=== PATIENT | female | born 1990 | race African-American/Black ===

== ENCOUNTER 2018-07-26 18:14 | Emergency (ER) | payer SELFPAY ==
[2018-07-26 18:24] VITALS: BP 122/70
[2018-07-26] MEDS ORDERED: PREDNISONE 20 MG TABLET PO ONE (18:49)
--- NOTE | 2018-07-26 18:55 | ER Document Report ---
HPI - HPI Patient complains to provider of: R hand swelling Time Seen by Provider: 07/26/18 18:25 Pain Level: 4 Context: Healthy 28-year-old female presents emergency department chief complaint of right hand swelling since this morning. She believes that she got a bite yesterday because she has some mosquito bites while being outside. She standing moving up and went to bed and when she woke up this morning there was some swelling. She went to work and the swelling got worse so her work sent her to the emergency department for assessment. She denies any redness, fevers, complains of pain at the site and tightness, denies warmth, has good range of motion. No other complaints. - REPRODUCTIVE Reproductive: DENIES: : Past Medical History - Social History Smoking Status: Never Smoker Family History: None Vertical Provider Document - CONSTITUTIONAL Notes: PHYSICAL EXAMINATION: Reviewed vital signs and charting by RN GENERAL: Alert, interacts well. No acute distress. HEAD: Normocephalic, atraumatic. EYES: Pupils equal, round. Extraocular movements intact. EXTREMITIES: Moves all 4 extremities spontaneously. Edema on the dorsal aspect of the first and second MCPs of the right hand that spreads proximally senior care up the hand approximately 3 inches x 3 inches, no erythema or warmth, there is a very small potential lesion that could be a bite. PSYCH: Normal affect, normal mood. SKIN: Warm, dry, normal turgor. - INFECTION CONTROL TRAVEL OUTSIDE OF THE [place] IN LAST 30 DAYS: No Course - Re-evaluation Re-evalutation: 07/26/18 18:52 Well-appearing. Patient tried to ice the extremity large and still has significant swelling and pain. She has not tried taking Benadryl as she went to work. I told her plan is to give her 1 dose of steroids here and recommendation is to go home and take Benadryl 50 mg p.o. right at bedtime and see how it is in the morning. If this will is gone down I told her to hold off on filling the steroid as we may be able to manage more conservatively with Benadryl. If she still has swelling I instructed her to get the steroid filled and continue the remaining 5-day course. There is no redness or concern for cellulitis, no evidence of necrosis, and she has a normal distal neurovascular exam with brisk cap refill. At this time she is stable for discharge. - Vital Signs Vital signs: Temp Pulse Resp BP Pulse Ox 98.9 F 75 16 122/70 97 07/26/18 18:22 07/26/18 18:22 07/26/18 18:22 07/26/18 18:22 07/26/18 18:22 Discharge - Discharge Clinical Impression: Swelling of right hand Condition: Good Disposition: HOME, SELF-CARE Additional Instructions: You were seen in the emergency department this afternoon for. Is unclear what caused it but most likely some type of a bug or potentially a spider. There is no evidence that it is from a brown recluse spider but you definitely need to look out for a small brown patch that turns black and starts to become necrotic. If that is the case please immediately return to the emergency department. Other things to look out for is to make sure that you do not develop a cellulitis where he will get redness that spreads, worsening swelling, reduced range of motion of the hand, fevers, or red streaks up your arm. If that is the case please return to the emergency department as you will need antibiotics for that. I recommend that you take Benadryl 50 mg right at bedtime to see if that helps with the inflammation overnight. If it does in the morning and the swelling is subsided we can manage more conservatively and he can continue to ice and take Benadryl 25 mg 3-4 times a day. It can make you drowsy. If you are still having swelling and pain in the morning go ahead and get the prescription for prednisone filled and take the 5-day course. If you have any of the above concerning signs or symptoms please return for reevaluation. Prescriptions: Prednisone [Deltasone 20 mg Tablet] 40 mg PO DAILY 4 Days #8 tablet Forms: Return to Work
== END 2018-07-26 19:21 | disposition home or self-care (01) ==
LOC: ER 18:14
DX: M79.89 Other specified soft tissue disorders (principal)
CPT/HCPCS: 99283; J7512

== ENCOUNTER 2019-02-11 11:51 | Emergency (ER) | payer SELFPAY ==
[2019-02-11] MEDS ORDERED: ONDANSETRON 4 MG TAB.RAPDIS PO ONE (12:32)
[2019-02-11] MEDS ORDERED: IBUPROFEN 800 MG TABLET PO ONE (12:32)
--- NOTE | 2019-02-11 12:34 | ER Document Report ---
HPI - HPI Patient complains to provider of: Flu symptoms Time Seen by Provider: 02/11/19 12:27 Onset: Yesterday Onset/Duration: Gradual Quality of pain: Achy Context: Patient presents with cough fever body aches and chills that started yesterday with nausea. Patient also reports some diarrhea. Patient states that her skin is painful to be touched. Patient is requesting influenza testing at this time. Associated Symptoms: Body/muscle aches, Nonproductive cough, Fever, Rhinnorhea. denies: Vomiting Exacerbated by: Denies Relieved by: Denies Similar symptoms previously: No Recently seen / treated by doctor: No - ROS ROS below otherwise negative: Yes Systems Reviewed and Negative: Yes All other systems reviewed and negative - CONSTITUTIONAL Constitutional: REPORTS: Fever - EENT EENT: REPORTS: Nasal Drainage-Clear, Congestion - RESPIRATORY Respiratory: REPORTS: Coughing. DENIES: Trouble Breathing - GASTROINTESTINAL Gastrointestinal: REPORTS: Nausea. DENIES: Patient vomiting, Diarrhea - REPRODUCTIVE Reproductive: DENIES: : - DERM Skin Color: Normal Skin Problems: None Past Medical History - General Information source: Patient - Social History Smoking Status: Current Every Day Smoker Frequency of alcohol use: None Drug Abuse: None Occupation: Call center Lives with: Family Family History: None - Medical History Medical History: Negative Renal/ Medical History: Denies: Hx Peritoneal Dialysis Surgical Hx: Negative Vertical Provider Document - CONSTITUTIONAL Agree With Documented VS: Yes Exam Limitations: No Limitations General Appearance: WD/WN, No Apparent Distress - INFECTION CONTROL TRAVEL OUTSIDE OF THE [place] IN LAST 30 DAYS: No - HEENT HEENT: Atraumatic, Normocephalic. negative: Pharyngeal Exudate, Pharyngeal Tenderness, Pharyngeal Erythema, Tympanic Membrane Red Notes: Clear rhinorrhea - NECK Neck: Normal Inspection, Supple. negative: Lymphadenopathy-Left, Lymphadenopathy-Right - RESPIRATORY Respiratory: No Respiratory Distress, Other - Occasional dry cough. negative: Chest Non-Tender, Wheezing - CARDIOVASCULAR Cardiovascular: Regular Rate, Regular Rhythm, No Murmur. negative: Tachycardia - GI/ABDOMEN Gastrointestinal: Abdomen Soft, Abdomen Non-Tender - MUSCULOSKELETAL/EXTREMETIES Musculoskeletal/Extremeties: MARY SPANGLER - NEURO Level of Consciousness: Awake, Alert, Appropriate Motor/Sensory: No Motor Deficit - DERM Integumentary: Warm, Dry Course - Re-evaluation Re-evalutation: 02/11/19 13:13 Patient presents with flulike symptoms although the rapid influenza test is negative. Discussed with patient possibility of a false negative test at this time. Discussed with patient treatment options. Patient would like to be treated for influenza. No concern for pneumonia or pneumothorax. Patient otherwise appears stable. Patient reports nausea symptoms have resolved at this time. - Vital Signs Vital signs: Temp Pulse Resp BP Pulse Ox 99.7 F 96 18 147/72 H 99 02/11/19 12:02 02/11/19 12:02 02/11/19 12:02 02/11/19 12:02 02/11/19 12:02 - Diagnostic Test Radiology reviewed: Reports reviewed Discharge - Discharge Clinical Impression: Flu-like symptoms, Nausea Condition: Stable Disposition: HOME, SELF-CARE Instructions: Antinausea Medication ([facility]), Influenza ([facility]) Additional Instructions: Return immediately for any new or worsening symptoms Followup with your primary care provider, call tomorrow to make a followup appointment Increase oral fluids and stay well-hydrated Prescriptions: Oseltamivir Phosphate [Tamiflu 75 mg Capsule] 75 mg PO BID #10 capsule Ondansetron HCl [Zofran 4 mg Tablet] 1 - 2 tab PO Q6 PRN #15 tablet PRN Reason: Forms: Return to Work Referrals: [facility] [Provider Group] - Follow up as needed
--- NOTE | 2019-02-11 12:56 | RADIOLOGY REPORT (SQ) ---
EXAM DESCRIPTION: CHEST 2 VIEWS COMPLETED DATE/TIME: 02/11/2019 12:45 pm REASON FOR STUDY: fever, cough COMPARISON: None. EXAM PARAMETERS: NUMBER OF VIEWS: two views TECHNIQUE: PA and lateral views of the chest were obtained. RADIATION DOSE: NA LIMITATIONS: none FINDINGS: LUNGS AND PLEURA: No consolidation, pleural effusion or pneumothorax. MEDIASTINUM AND HILAR STRUCTURES: No mediastinal or hilar contour abnormality. HEART AND VASCULAR STRUCTURES: The cardiac silhouette and pulmonary vasculature are within normal grayson its. BONES: No acute findings. HARDWARE: None in the chest. OTHER: No other finding. IMPRESSION: No acute cardiopulmonary process. TECHNICAL DOCUMENTATION: JOB ID: [id number] [employer]- All Rights Reserved Reading location - IP/workstation name: [email or web address]
[2019-02-11 13:05] LABS: A TYPE INFLUENZA AG NEGATIVE (NEGATIVE); B INFLUENZA AG NEGATIVE (NEGATIVE)
[2019-02-11 13:35] VITALS: BP 130/65
== END 2019-02-11 13:32 | disposition home or self-care (01) ==
LOC: ER 11:51
DX: R05 Cough (principal); R50.9 Fever, unspecified; R11.0 Nausea; M79.10 Myalgia, unspecified site; J34.89 Other specified disorders of nose and nasal sinuses; F17.200 Nicotine dependence, unspecified, uncomplicated
CPT/HCPCS: 99283; 87804; 71046; S0119